=== PATIENT | female | born 1995 | race Native Hawaiian/Other Pacific Islander ===

== ENCOUNTER 2018-11-09 14:09 | Emergency (ER) | payer OTHER ==
[~2018-11-09] VITALS: Ht 157.5 cm; Wt 49.9 kg
[2018-11-09 14:47] VITALS: BP 118/80; TEMP 99.3
== END 2018-11-09 17:41 | disposition home health service (06) ==
LOC: ED 14:09
PROC: 0U9L0ZZ Drainage of Vestibular Gland, Open Approach (ICD-10-PCS; principal; 2018-11-09)
DX: N75.0 Cyst of Bartholin's gland (principal)
CPT/HCPCS: 87070; 87077; 87186; 99283

== ENCOUNTER 2018-11-10 16:04 | Emergency (ER) | payer OTHER ==
[~2018-11-10] VITALS: Ht 157.5 cm; Wt 49.9 kg
[2018-11-10 16:16] VITALS: BP 109/65; TEMP 98.6
== END 2018-11-10 16:38 | disposition home or self-care (01) ==
LOC: ED 16:04
DX: N75.0 Cyst of Bartholin's gland (principal); Z48.01 Encounter for change or removal of surgical wound dressing

== ENCOUNTER 2019-05-03 12:53 | Emergency (ER) | payer OTHER ==
[~2019-05-03] VITALS: Ht 157.5 cm; Wt 49.9 kg
[2019-05-03 12:58] VITALS: BP 116/76; TEMP 98.3
== END 2019-05-03 13:25 | disposition home or self-care (01) ==
LOC: ED 12:53
DX: I88.9 Nonspecific lymphadenitis, unspecified (principal)
CPT/HCPCS: 99281